=== PATIENT | female | born 1995 | race Caucasian/White ===

== ENCOUNTER 2020-08-20 19:27 | Emergency (ER) | payer SELFPAY ==
[~2020-08-20] VITALS: Ht 160 cm; Wt 63.5 kg
[2020-08-20] MEDS ORDERED: IBUPROFEN 600 MG TABLET PO ONE (19:30)
[2020-08-20 19:33] VITALS: BP 128/82
[2020-08-20] MEDS ORDERED: IBUPROFEN 600 MG TABLET ONE (19:37)
--- NOTE | 2020-08-20 20:19 | NUR ---
Patient discharged to home in stable condition. rx and Written and verbal after care instructions given. Patient verbalizes understanding of instruction. pt was provided w/ shoulder slimg prior to d/c
== END 2020-08-20 20:21 | disposition home or self-care (01) ==
LOC: ER 19:27
DX: S43.492A Other sprain of left shoulder joint, initial encounter (principal); S40.022A Contusion of left upper arm, initial encounter; V49.49XA Driver injured in collision with other motor vehicles in traffic accident, initial encounter; Y93.89 Activity, other specified; Y92.413 State road as the place of occurrence of the external cause; Y99.8 Other external cause status
CPT/HCPCS: 71045-TC; 73030-TC; 73060-TC

== ENCOUNTER 2020-08-21 17:02 | Emergency (ER) | payer OTHER ==
[~2020-08-21] VITALS: Ht 160 cm; Wt 68.0 kg
[2020-08-21 17:43] VITALS: BP 112/87
--- NOTE | 2020-08-21 18:50 | NUR ---
Patient discharged to home in stable condition. Written and verbal after care instructions given. Patient verbalizes understanding of instruction. Pt ambulatory with a steady gait
== END 2020-08-21 18:51 | disposition home or self-care (01) ==
LOC: ER 17:11
DX: S16.1XXA Strain of muscle, fascia and tendon at neck level, initial encounter (principal); S39.012A Strain of muscle, fascia and tendon of lower back, initial encounter; V49.49XA Driver injured in collision with other motor vehicles in traffic accident, initial encounter; Y93.89 Activity, other specified; Y92.413 State road as the place of occurrence of the external cause; Y99.8 Other external cause status